=== PATIENT | male | born 1960 | race Two or more races ===

== ENCOUNTER 2017-12-25 14:00 | Emergency (ER) | payer OTHER ==
[~2017-12-25] VITALS: Ht 170.2 cm; Wt 81.6 kg
[2017-12-25] MEDS ORDERED: LISINOPRIL20 MG ORAL (14:02)
[2017-12-25] MEDS ORDERED: BENAZEPRIL HCL40 MG ORAL (14:17)
[2017-12-25] MEDS ORDERED: Benazepril 10mg tab ONE (14:36)
[2017-12-25 15:00] VITALS: BP 179/110
[2017-12-25 15:08] VITALS: BP 179/110
--- NOTE | 2017-12-25 15:13 | Emergency Room Report ---
History of Present Illness General Chief Complaint: Dizziness Source: Patient Present Illness HPI 57-year-old male presents ED for evaluation of dizziness. 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 States that when EMS came to see the patient to his blood pressure was high. Brought to ED for evaluation. Patient has history of hypertension. States that he takes benazepril and missed his evening dose yesterday. Patient denies any dizziness at this time. Denies any chest pain or shortness of breath. Denies any headache. Eyes any blurred vision nausea or vomiting. No other aggravating relieving factors. Denies any other associated symptoms Allergies: Coded Allergies: No Known Allergies (Unverified , 12/25/17) Patient History Past Medical History: HTN Past Surgical History: none Pertinent Family History: none Social History: Denies: smoking, alcohol use, drug use Immunizations: UTD Reviewed Nursing Documentation: PMH: Agreed; PSxH: Agreed Nursing Documentation-PMH Past Medical History: No History, Except For Hx Hypertension: Yes Review of Systems All Other Systems: negative except mentioned in HPI Physical Exam Vital Signs Date Time Temp Pulse Resp B/P (MAP) Pulse Ox O2 Delivery O2 Flow Rate FiO2 12/25/17 13:59 98.2 78 14 204/106 99 Room Air 98.2 Sp02 EP Interpretation: reviewed, normal General Appearance: no apparent distress, alert, GCS 15, non-toxic Head: normocephalic, atraumatic Eyes: bilateral eye normal inspection, bilateral eye PERRL ENT: hearing grossly normal, normal pharynx, no angioedema, normal voice Neck: full range of motion, supple, no meningismus, supple/symm/no masses Respiratory: chest non-tender, lungs clear, normal breath sounds, speaking full sentences Cardiovascular #1: regular rate, rhythm, no edema Cardiovascular #2: 2+ carotid (R), 2+ carotid (L), 2+ radial (R), 2+ radial (L) , 2+ dorsalis pedis (R), 2+ dorsalis pedis (L) Gastrointestinal: normal bowel sounds, non tender, soft, non-distended, no guarding, no rebound Rectal: deferred Genitourinary: normal inspection, no CVA tenderness Musculoskeletal: back normal, gait/station normal, normal range of motion, non- tender Neurologic: alert, oriented x3, responsive, motor strength/tone normal, sensory intact, speech normal Psychiatric: judgement/insight normal, memory normal, mood/affect normal, no suicidal/homicidal ideation Reflexes: 3+ bicep (R), 3+ bicep (L), 3+ tricep (R), 3+ tricep (L), 3+ knee (R) , 3+ knee (L) Skin: normal color, no rash, warm/dry, well hydrated Lymphatic: no adenopathy Medical Decision Making Diagnostic Impression: Primary Impression: Hypertension Qualified Codes: I10 - Essential (primary) hypertension Additional Impression: Dizziness ER Course Hospital Course 57-year-old male presents ED complaining of elevated BP, c/o dizziness. no symptoms at this time Differential diagnoses include: hypertensive urgency, hypertensive emergency, arrythmia, MD/ACS Clinical course Patient placed on stretcher. After initial history, physical exam reveals a middle-aged male in no acute distress. No focal neurological deficits. Visual acuity intact. Cranial nerves II through XII grossly intact. No meningismal signs. Remainder physical exam unremarkable. BP in ED is improved. Patient is declining lab work. I did request an EKG which he agreed to EKGnormal sinus rhythm no acute ischemic changes interpreted by me Discussed findings with patient. Patient requesting discharge. I believe that patient be discharged at this time with close outpatient follow-up with PMD. Patient agrees to plan. Given dose of benazepril here I. I feel this is a highly complex case requiring extensive working including EKG/Rhythm strip, Xray/CT/US, Blood/urine lab work, repeat exams while in ED, and administration of strong opiates/narcotics for pain control, admission to hospital or close patient follow up. Diagnosis - hypertension, dizziness Stable and discharged to home. take meds as directed. Instructed to followup with PMD. Return to ED if symptoms recur or worsen EKG Diagnostic Results Rate: normal Rhythm: NSR ST Segments: no acute changes ASA given to the pt in ED: No Rhythm Strip Diag. Results EP Interpretation: yes Rhythm: NSR, no PVC's, no ectopy Last Vital Signs Date Time Temp Pulse Resp B/P (MAP) Pulse Ox O2 Delivery O2 Flow Rate FiO2 12/25/17 14:47 199/114 12/25/17 13:59 98.2 78 14 99 Room Air 98.2 Status: improved Disposition: HOME, SELF-CARE Condition: Stable Patient Instructions: Dizziness Additional Instructions: take your benazepril as directed. follow up with Johnny Keating MD Dec 25, 2017 15:13
--- NOTE | 2017-12-28 16:14 | Cardiology Report ---
APPROVED REPORT EKG Measurement Heart [id number] CT [id number] Normal sinus rhythm Normal ECG
== END 2017-12-25 15:08 | disposition home or self-care (01) ==
LOC: EDBD 14:00 → EMR 14:30
DX: I10 Essential (primary) hypertension (principal); R42 Dizziness and giddiness
CPT/HCPCS: 93005; 99282